=== PATIENT | female | born 1965 | race Hispanic/Latino ===

== ENCOUNTER 2018-02-16 10:11 | Outpatient (CLI) | payer OTHER ==
--- NOTE | 2018-02-16 14:08 | CT ---
CT ABDOMEN AND PELVIS WITH IV COTNRAST: DATE: 02/16/2018. HISTORY: Pelvic pain for past week and abdominal bloating for the past 6 months. COMPARISON: None available. FINDINGS: Lung bases are clear. Post cholecystectomy changes are noted. The liver, spleen, pancreas, bilateral adrenal glands, kidneys, urinary bladder, and opacified bowel demonstrate a normal CT appearance. The appendix is visualized and normal in caliber. There is colonic diverticulosis involving the descending and sigmoid colon. A 2.4 cm left adnexal cy stic structure is seen which does demonstrate fluid attenuation and likely represents a small left ov olivia cyst. The right adnexal structures have a normal appearance. There are hypodense cystic-appearing lesions within the cervix probably related to multiple nabothian cysts. However, there is also generalized heterogeneity of the uterus with scattered very small low -density areas present. The exact etiology for these lower density hypodense structures within the u terus are of uncertain etiology and does not have the typical appearance of uterine fibroids, althoug h this is a possibility. In addition, there is slightly lobular contour of the left aspect of the ut erus. Further evaluation with pelvic ultrasound is recommended. No free fluid, fluid collection, or lymphadenopathy is seen in the abdomen or pelvis. Lateral pars defects are present at L5. IMPRESSION: 1. Heterogeneity of the uterus with small low-density lesions present with a more defined area of he terogeneity and lobulated contour along the left lateral margin of the body of the uterus. Findings could potentially be related to uterine fibroids. Pelvic ultrasound is recommended for further evalu ation. 2. Multiple hypodense cystic structures in the region of the cervix, probably related to nabothian c ysts. This can also be further evaluated with ultrasound examination. 3. Colonic diverticulosis. 4. No CT evidence of appendicitis. 5. Post cholecystectomy changes. 6. Small left ovarian cyst. 7. Bilateral pars defects at L5. POS: [facility]
== END 2018-02-16 10:12 | disposition home or self-care (01) ==
LOC: SCSCT 10:11
PROVIDERS: ATTEND Family Medicine
DX: R10.2 Pelvic and perineal pain (principal); K57.30 Diverticulosis of large intestine without perforation or abscess without bleeding; N83.202 Unspecified ovarian cyst, left side; Z90.49 Acquired absence of other specified parts of digestive tract
CPT/HCPCS: 74177